=== PATIENT | female | born 1990 | race Hispanic/Latino ===

== ENCOUNTER 2021-01-14 09:26 | Emergency (ER) | payer OTHER ==
[2021-01-14 09:43] VITALS: BP 118/71
--- NOTE | 2021-01-14 10:14 | Emergency Department Report ---
ED Rash HPI - HPI Chief Complaint: Skin Rash Stated Complaint: RASH Time Seen by Provider: 01/14/21 10:03 Duration: 2 weeks Location: Chest, Abdomen, Upper Extremities Suspected Cause: Unknown Rash Symptoms: Yes Itching, No Facial Swelling, No Tongue/Oral Swelling, No Breathing Difficulties, No Choking Sensation, No Wheezing/Dyspnea, No Peeling, No Blistering, No Fever, No Lightheaded, No Malaise, No Myalgias Severity: mild Other History: This is a 30-year-old female nontoxic, well nourished in appearance, no acute signs of distress presents to the ED with c/o of bilateral on the armpits multiple circular rash with some crusting, pain and itching as well as to the abdomen area. Patient that is going on for the past 2 weeks and is getting worse. Patient seen by urgent care twice and was treated with steroids and was told that this was an allergic reaction. Patient denies any drooling, hoarseness or facial swelling. Patient denies any trauma. She denies any fever, chills, nausea, vomiting, chest pain, shortness of breath, headache, stiff neck, numbness or tingling. Patient denies any allergies or significant past medical history. ED Review of Systems ROS: Stated complaint: RASH Other details as noted in HPI Constitutional: denies: chills, fever Eyes: denies: eye pain, eye discharge, vision change ENT: denies: ear pain, throat pain Respiratory: denies: cough, shortness of breath, wheezing Cardiovascular: denies: chest pain, palpitations Endocrine: no symptoms reported Gastrointestinal: denies: abdominal pain, nausea, diarrhea Genitourinary: denies: urgency, dysuria, discharge Musculoskeletal: denies: back pain, joint swelling, arthralgia Skin: rash. denies: lesions Neurological: denies: headache, weakness, paresthesias Psychiatric: denies: anxiety, depression Hematological/Lymphatic: denies: easy bleeding, easy bruising ED Past Medical Hx - Past Medical History Previous Medical History?: No - Surgical History Past Surgical History?: No - Social History Smoking Status: Never Smoker Substance Use Type: None - Medications Home Medications: Home Medications Medication Instructions Recorded Confirmed Last Taken Type Doxycycline Hyclate [Doxycycline 100 mg PO Q12HR #14 tab 01/14/21 Unknown Rx Hyclate TAB] Fluconazole [Diflucan TAB] 200 mg PO 1XW #2 tablet 01/14/21 Unknown Rx Rash Exam - Exam General: Vital signs noted. No distress. Alert and acting appropriately. HEENT: No Periorbital Edema, No Conjuctival Injection, No Chemosis, No Perioral Edema, No Tongue Edema, No Uvular Edema, No Compromised Airway, No Drooling Lungs: Yes Good Air Exchange (Normal Breath Sounds), No Wheezes, No Ronchi, No Stridor, No Cough, No Labored Respirations, No Retractions, No Use of Accessory Muscles, No Other Abnormal Lung Sounds Heart: Yes Regular, No Murmur Skin: Yes Other (Bilateral axilla and abdomen multiple circular erythema/scaly rash with some honey colored crusting.), No Urticarial Rash, No Maculopapular Rash, No Morbilliform rash, No Bulla(e), No Excoriations, No Weeping, No Tenderness, No Erythema, No Edema, No Encrustations Other: Positive: Abdomen Normal, Neurologic Normal, Musculoskeletal Normal ED Course Vital Signs 01/14/21 09:41 Temperature 98.4 F Pulse Rate 78 Respiratory 16 Rate Blood Pressure 118/71 O2 Sat by Pulse 99 Oximetry - Reevaluation(s) Reevaluation #1: 01/14/21 10:16 Patient is speaking in full sentences with no signs of distress noted. ED Medical Decision Making - Medical Decision Making Patient is stable and was examined by me. Vital signs are stable. Examination reveals impetigo versus tinea corporis. Patient be treated for both due to worsening symptoms. Patient was instructed to follow-up with a primary care doctor in 3-5 days or if symptoms worsen and continue return to emergency room as soon as possible. At time of discharge, the patient does not seem toxic or ill in appearance. No acute signs of distress noted. Patient agrees to discharge treatment plan of care. No further questions noted by the patient. Critical care attestation.: If time is entered above; I have spent that time in minutes in the direct care of this critically ill patient, excluding procedure time. ED Disposition Clinical Impression: Impetigo, Tinea corporis Disposition: DC- TO HOME OR SELFCARE Is pt being admited?: No Does the pt Need Aspirin: No Condition: Stable Instructions: Impetigo, Adult Additional Instructions: Follow-up with a primary care doctor in 3-5 days or if symptoms worsen and continue return to emergency room as soon as possible. Prescriptions: Fluconazole [Diflucan TAB] 200 mg PO 1XW #2 tablet Doxycycline Hyclate [Doxycycline Hyclate TAB] 100 mg PO Q12HR #14 tab Referrals: PRIMARY CAREMD [Referring] - 3-5 Days NAI ROSENBERG MD [Staff Physician] - 3-5 Days Forms: Work/School Release Form(ED) Time of Disposition: 10:20
== END 2021-01-14 10:30 | disposition home or self-care (01) ==
LOC: ED 09:26
DX: L01.00 Impetigo, unspecified (principal); B35.4 Tinea corporis; Z79.899 Other long term (current) drug therapy
CPT/HCPCS: 99281

== ENCOUNTER 2022-08-06 08:56 | Emergency (ER) | payer SELFPAY ==
[2022-08-06 14:18] LABS: Hemoglobin 12.8 gm/dl (10.1-14.3); Mean Corpuscular HGB Conc 34 % (30-34); Mean Corpuscular Volume 96 fl (79-97); Platelet Count 268 K/mm3 (140-440); Red Blood Count 3.98 M/mm3 (3.65-5.03); Red Cell Distribution Width 13.1 % (13.2-15.2)
[2022-08-06 14:44] LABS: Alanine Aminotransferase 58 units/L (7-56); Blood Urea Nitrogen 8 mg/dL (7-17); Calcium 9.2 mg/dL (8.4-10.2); Hemolysis Index 2
[2022-08-06 14:51] LABS: BUN/Creatinine Ratio 13
--- NOTE | 2022-08-06 15:14 | Ultrasound Report ---
ULTRASOUND OBSTETRIC REASON FOR EXAM: preg, vag bleed and pain TECHNIQUE: Transabdominal and transvaginal ultrasound was performed to evaluate a first trimester pre gnancy. COMPARISON: None available. FINDINGS: FINDINGS: The pole, yolk sac, and gestational sac are normal in appearance. Xenia-rump length: 28.1 mm. This corresponds with a gestational age of 9 weeks 4 days. heart rate: 170 bpm Perigestational hemorrhage: No evidence of perigestational hemorrhage on the provided images. MATERNAL FINDINGS: The uterus demonstrates an otherwise unremarkable sonographic appearance. The right ovary demonstrates a normal sonographic appearance. The left ovary demonstrates a normal sonographic appearance. Cul-de-sac: There is no free fluid. IMPRESSION: Viable intrauterine . Gestational age is 9 weeks 4 days by ultrasound. Recommend clinical sc reening and ultrasound follow-up in the second trimester to screen for anomalies. Signer Name: Johny Vargas MD Signed: 08/06/2022 3:09 PM Workstation Name: [id number]
--- NOTE | 2022-08-06 17:50 | Emergency Department Report ---
ED HPI - General Chief complaint: Vaginal Bleeding Stated complaint: SPOTTING Time Seen by Provider: 08/06/22 12:24 Source: patient Mode of arrival: Ambulatory Limitations: No Limitations - History of Present Illness Initial comments: 31 yo female with no pmh who is at 8.5 weeks gestation presents to ed for evaluation of vaginal spotting and abdominal cramping that started this am. She states that when she woke up this am, she had some pink blood when she wiped along with abdominal cramping. She states that spotting has resolved but she is still having abdominal cramping 3-/10. She denies fever, n/v, dysuria, and vaginal discharge. MD Complaint: abdominal pain, vaginal bleeding -: Sudden, This morning Location: abdomen Radiation: none Severity scale (0 -10): 3 Quality: cramping Consistency: constant Associated symptoms: vaginal bleeding, abdominal pain. denies: nausea/vomiting, vaginal discharge, dysuria, headache, vision changes, malaise, dysparuenia, syncope, weakness Vaginal bleeding: light :: Yes OB History - Current : no complications OB History - Previous Pregnancies: no complications Pre-melany care: followed by OB - Related Data : 4 Para: 3 Previous Rx's Medication Instructions Recorded Last Taken Type Doxycycline Hyclate [Doxycycline 100 mg PO Q12HR #14 tab 01/14/21 Unknown Rx Hyclate TAB] Fluconazole [Diflucan TAB] 200 mg PO 1XW #2 tablet 01/14/21 Unknown Rx Allergies Allergy/AdvReac Type Severity Reaction Status Date / Time No Known Allergies Allergy Verified 08/06/22 09:16 ED Review of Systems ROS: Stated complaint: SPOTTING Other details as noted in HPI Comment: All other systems reviewed and negative Constitutional: denies: chills, fever Respiratory: denies: shortness of breath, SOB with exertion, SOB at rest Cardiovascular: denies: chest pain, palpitations Gastrointestinal: abdominal pain. denies: nausea, vomiting Musculoskeletal: denies: back pain Neurological: denies: headache ED Past Medical Hx - Past Medical History Previous Medical History?: No - Surgical History Past Surgical History?: No - Social History Smoking Status: Never Smoker Substance Use Type: None - Medications Home Medications: Home Medications Medication Instructions Recorded Confirmed Last Taken Type Doxycycline Hyclate [Doxycycline 100 mg PO Q12HR #14 tab 01/14/21 Unknown Rx Hyclate TAB] Fluconazole [Diflucan TAB] 200 mg PO 1XW #2 tablet 01/14/21 Unknown Rx ED Physical Exam - General Limitations: No Limitations General appearance: alert, in no apparent distress - Head Head exam: Present: atraumatic, normocephalic - Eye Eye exam: Present: normal appearance. Absent: conjunctival injection - Neck Neck exam: Present: normal inspection. Absent: tenderness, lymphadenopathy - Respiratory Respiratory exam: Present: normal lung sounds bilaterally. Absent: respiratory distress, wheezes, rales, rhonchi, stridor, chest wall tenderness - Cardiovascular Cardiovascular Exam: Present: regular rate, normal heart sounds - GI/Abdominal GI/Abdominal exam: Present: soft, normal bowel sounds. Absent: distended, tend erness, guarding, rebound, rigid - Extremities Exam Extremities exam: Present: normal inspection, full ROM, normal capillary refill. Absent: tenderness, pedal edema, joint swelling, calf tenderness - Back Exam Back exam: Present: normal inspection, full ROM. Absent: tenderness, CVA tenderness (R), CVA tenderness (L) - Neurological Exam Neurological exam: Present: alert, oriented X3, CN II-XII intact, normal gait - Psychiatric Psychiatric exam: Present: normal affect, normal mood - Skin Skin exam: Present: warm, dry, intact, normal color ED Course Vital Signs 08/06/22 08/06/22 08/06/22 09:13 09:14 12:57 Temperature 98.7 F 98.7 F Pulse Rate 86 85 Respiratory 99 H 18 17 Rate Blood Pressure 144/79 Blood Pressure 144/79 [Right] O2 Sat by Pulse 99 99 Oximetry 08/06/22 18:15 Temperature 98.6 F Pulse Rate 70 Respiratory 17 Rate Blood Pressure Blood Pressure 136/80 [Right] O2 Sat by Pulse 99 Oximetry ED Medical Decision Making - Lab Data Result diagrams: 08/06/22 13:27 08/06/22 13:27 - Radiology Data Radiology results: report reviewed, image reviewed US: FINDINGS: FINDINGS: The pole, yolk sac, and gestational sac are normal in appearance. Dickinson-rump length: 28.1 mm. This corresponds with a gestational age of 9 weeks 4 days. heart rate: 170 bpm Perigestational hemorrhage: No evidence of perigestational hemorrhage on the provided images. MATERNAL FINDINGS: The uterus demonstrates an otherwise unremarkable sonographic appearance. The right ovary demonstrates a normal sonographic appearance. The left ovary demonstrates a normal sonographic appearance. Cul-de-sac: There is no free fluid. IMPRESSION: Viable intrauterine . Gestational age is 9 weeks 4 days by ultrasound. Recommend clinical screening and ultrasound follow-up in the second trimester to screen for anomalies. - Medical Decision Making 31 yo female with no pmh who is at 8.5 weeks gestation presents to ed for evaluation of vaginal spotting and abdominal cramping that started this am. She states that when she woke up this am, she had some pink blood when she wiped along with abdominal cramping. She states that spotting has resolved but she is still having abdominal cramping 3-03/02. She denies fever, n/v, dysuria, and vaginal discharge. Physical exam unremarkable. Work up unremarkable with US positive for IUP at 9 weeks. Patient is advised to follow up with salesperson [employer] next week as planned and return to ed as needed. She verbalizes understanding of and agreement with plan of care. Critical care attestation.: If time is entered above; I have spent that time in minutes in the direct care of this critically ill patient, excluding procedure time. ED Disposition Clinical Impression: Vaginal bleeding in patient at less than 20 weeks gestation Disposition: 01 HOME / SELF CARE / HOMELESS Is pt being admited?: No Does the pt Need Aspirin: No Condition: Stable Instructions: Vaginal Bleeding During , First Trimester Additional Instructions: Follow-up with [facility] next week as planned. Return to the emergency department as needed. Referrals: ÁNGELA DIGGS MD [Staff Physician] - 3-5 Days ROB ARZATE MD [Staff Physician] - 3-5 Days Time of Disposition: 17:50
[2022-08-06 18:10] LABS: Color,Urine Yellow (Yellow)
[2022-08-06 18:15] VITALS: BP 136/80
[2022-08-06 18:18] LABS: Mucus,Urine FEW /HPF; WBC,Urine < 1.0 /HPF (0.0-6.0)
== END 2022-08-06 18:16 | disposition home or self-care (01) ==
LOC: ED 08:56
DX: O46.91 Antepartum hemorrhage, unspecified, first trimester (principal); Z3A.09 9 weeks gestation of pregnancy
CPT/HCPCS: 36415; 76801; 80053; 81001; 84702; 85027; 86900; 86901; 99284